=== PATIENT | female | born 1940 | race Caucasian/White ===

== ENCOUNTER 2020-04-10 17:27 | Inpatient (IN) | payer MEDICARE, MEDICAID, OTHER ==
[2020-04-10 18:23] LABS: #Basophils 0.1 thou/uL (0.0-0.2); #Eosinphils 0.1 thou/uL (0.0-0.7); #Lymphocytes 1.5 thou/uL (1.20-3.40); #Monocytes 0.8 thou/uL (0.11-0.59); #Neutrophils 4.1 thou/uL (1.40-6.50); %Basophils 0.8 % (0.0-1.0); %Lymphocytes 23.2 % (21.0-51.0); %Monocytes 12.3 % (0.0-10.0); %Neutrophils 62.8 % (42.0-75.0); Hemoglobin 13.5 g/dL (12.0-16.0); Mean Corpuscular Hemoglobin 31.8 pg (27.0-31.0); Mean Corpuscular Volume 96.3 fL (78.0-98.0); Mean Platelet Volume 8.7 fL (7.4-10.4); Platelet Count 291 thou/uL (130-400); RBC Distribution Width 12.2 % (11.5-14.5); Red Blood Cell (RBC) Count 4.26 mill/uL (4.20-5.40); White Blood Cell (WBC) Count 6.6 thou/uL (4.8-10.8)
[2020-04-10 18:46] LABS: ALT (SGPT) 33 U/L (8-55); AST (SGOT) 24 U/L (5-34); Albumin 4.1 g/dL (3.4-4.8); Alkaline Phosphatase 119 U/L (40-110); Anion Gap 13 mmol/L (10-20); BUN (Urea Nitrogen) 7 mg/dL (9.8-20.1); Bilirubin, Total 0.5 mg/dL (0.2-1.2); Calc. Creatinine Clearance 0 mL/min (70-130); Calcium 9.5 mg/dL (7.8-10.44); Carbon Dioxide 28 mmol/L (23-31); Chloride 88 mmol/L (98-107); Estimated GFR-MDRD 89; Globulin 3.5 g/dL (2.4-3.5); Glucose 103 mg/dL (83-110); Lipase 13 U/L (8-78); Magnesium 1.7 mg/dL (1.6-2.6); Protein, Total 7.6 g/dL (6.0-8.3); Sodium 125 mmol/L (136-145)
--- NOTE | 2020-04-10 18:51 | RAD ---
PORTABLE CHEST 1 VIEW: Date: 04/10/2020 Time: 1833 hours HISTORY: Hypertension with headaches, nausea, vomiting, and weakness. COMPARISON: None. FINDINGS: There is elevation of the right hemidiaphragm. The heart size is normal. The aorta is tortuous. No fo ralph areas of consolidation, pneumothoraces, or pleural effusions are seen. IMPRESSION: No acute process. POS: [facility]
[2020-04-10] MEDS ORDERED: Acetaminophen 325 MG TAB ONE (18:57)
[2020-04-10] MEDS ORDERED: Ketorolac Tromethamine 30 MG/ML VIAL ONE (18:57)
[2020-04-10] MEDS ORDERED: Labetalol HCl 100 MG/20 ML VIAL ONE (19:05)
[2020-04-10 20:30] LABS: Bacteria/HPF None Seen HPF (None Seen); Bilirubin Negative (Negative); Blood, Urine Negative (Negative); Clarity Clear (Clear); Glucose, Urine (Dipstick) Normal (Negative); Ketone, Urine 20 mg/dL (Negative); Leukocyte 75 Leu/uL (Negative); Nitrite Negative (Negative); Protein, Urine (Dipstick) Negative (Neg-Trace); RBC/HPF 0-3 HPF (0-3); Specific Gravity, Urine 1.011 (1.002-1.036); Squamous Epithelial 0-3 HPF (0-3); Urobilinogen Normal mg/dL (Less than 2); pH, Urine 6.5 (5.0-9.0)
[2020-04-10] MEDS ORDERED: cefTRIAXone\\ROCEPHIN 1 GM VIAL ONE (20:51)
[2020-04-11 00:45] VITALS: BMI 30.4
[2020-04-11] MEDS ORDERED: hydrALAZINE 20 MG/ML VIAL SLOW IVP PRN (01:43)
[2020-04-11] MEDS ORDERED: Sodium Chloride 0.9% 1,000 ML IV SCH (02:00)
--- NOTE | 2020-04-11 03:12 | HP ---
REASON FOR ADMISSION: Headaches. HISTORY OF PRESENT ILLNESS: This is an 79-year-old female patient, who presented to the ER complaining of headaches that she describes them as severe in intensity involving her whole head. History going back to two weeks before her presentation, she developed these headaches and for that reason, she visited her primary care physician, who diagnosed her with high blood pressure and she was started on amlodipine, but her blood pressure remains elevated. The headaches were continuous and today, her daughter called her neurologist, who advised her to come to the ER. In the ER, she was found to have a very high blood pressure. She was given labetalol IV for a systolic blood pressure of 192, currently the patient is on telemetry. She appeared to be very comfortable when I saw her. She denied having any headaches anymore. She was asleep. The patient was also noted to be hyponatremic. Her sodium was 125. The patient denied diarrhea and denied vomiting. She does eat a low-salt diet, but this is not different than her norm. On the other hand, she was recently diagnosed in February with some type of neurologia. She was started on carbamazepine and this medication is only medication that helped her with her left facial pain. The patient has been feeling weak lately. PAST MEDICAL HISTORY: 1. Neurologia. 2. High blood pressure. 3. 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 SOCIAL HISTORY: She quit smoking 17 years ago. Does not drink alcohol. ALLERGIES: TO SULFA AND CODEINE. FAMILY HISTORY: Negative for heart disease. REVIEW OF SYSTEMS: All systems reviewed except the above mentioned, found to be negative. PHYSICAL EXAMINATION: GENERAL: She is awake, alert, and oriented, does not appear in distress. VITAL SIGNS: Blood pressure is 143/79, heart rate of 64, temperature is 96.3, and saturating 95% on room air. HEENT: Head is nontraumatic and normocephalic. NECK: Supple. No adenopathy. No murmur. Thyroid is not palpable. Trachea is midline. No supraclavicular lymphadenopathy. HEART: S1 and S2. Regular. No murmur. No gallops. No friction rubs. No displacement of PMI. LUNGS: Clear to auscultation bilaterally. No wheezes. No rhonchi. No crackles. ABDOMEN: Bowel sounds are positive. Nontender abdomen. No hepatosplenomegaly. EXTREMITIES: No lower extremity edema. No cyanosis. NEUROLOGIC: Cranial nerves 2 through 12 within normal limits. Normal motor function. Normal sensory function. Normal reflexes. LABORATORY DATA: Blood work shows a WBC 6.6, hemoglobin 13.5, and platelets of 291. Sodium 125, potassium 4, bicarb 28, BUN 7, and creatinine 0.64. Urinalysis shows positive for leukocyte esterase and 7 to 10 wbc's. EKG shows normal sinus rhythm. ASSESSMENT AND PLAN: This is an 79-year-old female patient presenting with weakness, also hypertensive urgency found to be hyponatremic. Her hyponatremia could be due to carbamazepine. Renal system, electrolytes. The patient is hyponatremic. This could be due to carbamazepine. On the other hand, this medication is the only medication that has been helping her neurologia. The patient was not comfortable holding it. We will continue with this medication. Awaiting a urine sodium and serum osmolality to further characterize her hyponatremia. We will also consult Nephrology and we will have her on gentle fluid hydration with normal saline at 50 mL/h. For her urine infection, she will be on Rocephin. Awaiting results of urine culture. Neurologia. As mentioned above, she will be maintained on carbamazepine for now. For high blood pressure, I will start her on Toprol. We will start her on a lowest dose since her heart rate, although now in the 70s and at some point, it was in the 60s. We will supplement it with hydralazine on as-needed basis, if her blood pressure remains uncontrolled. For DVT prophylaxis, she will be on Lovenox. I did discuss with her the code status and she wishes to be an only cardiac code. She does not want to be intubated. Job ID: [id number]
[2020-04-11 04:43] LABS: Anion Gap 12 mmol/L (10-20); BUN (Urea Nitrogen) 8 mg/dL (9.8-20.1); Calc. Creatinine Clearance 91 mL/min (70-130); Calcium 8.8 mg/dL (7.8-10.44); Carbon Dioxide 25 mmol/L (23-31); Chloride 93 mmol/L (98-107); Estimated GFR-MDRD Greater than 90; Glucose 124 mg/dL (83-110); Potassium 3.1 mmol/L (3.5-5.1); Sodium 127 mmol/L (136-145)
[2020-04-11] MEDS: carBAMazepine SR 300 mg Capsule PO SCH ×2 (07:07→19:28)
[2020-04-11] MEDS: Enoxaparin Sodium 40 MG/0.4 ML SYRINGE SC SCH (07:58)
[2020-04-11] MEDS ORDERED: Calcium Carbonate 500 MG ChewTAB PO PRN (10:27)
[2020-04-11] MEDS ORDERED: Ondansetron ODT 4 MG TAB PO PRN (10:27)
[2020-04-11] MEDS ORDERED: Ondansetron PF 4 MG/2 ML Vial IVP PRN (10:27)
[2020-04-11] MEDS ORDERED: Senokot S 8.6-50 MG TAB PO PRN (10:27)
--- NOTE | 2020-04-11 10:57 | CT ---
HEAD CT WITHOUT CONTRAST: Date: 04/11/2020 COMPARISON: None available. HISTORY: Headache for 2 weeks, high blood pressure. TECHNIQUE: Axial CT imaging at 5 mm intervals from vertex through skull base without contrast. FINDINGS: The imaged paranasal sinuses and mastoid air cells demonstrate mucosal thickening of the sphenoid sin us on the left with mild wall thickening suggesting chronic sinusitis. There is an ocular prosthesis on the right. There is no displaced calvarial fracture. There is a degree of periventricular and deep white matter hypodensity suggesting small vessel diseas e. No intracranial hemorrhage, midline shift, mass effect, or ventricular enlargement. IMPRESSION: No intracranial hemorrhage. POS: [facility]
[2020-04-11] MEDS: Potassium Chloride 20 MEQ TAB PO SCH ×2 (11:24→16:29)
[2020-04-11] MEDS: Acetaminophen 325 MG TAB PO PRN (11:24)
[2020-04-11] MEDS ORDERED: Amlodipine 10 MG TAB PO SCH (13:00)
--- NOTE | 2020-04-11 13:38 | CON ---
DATE OF CONSULTATION: 04/11/2020 SERVICE: Nephrology. REASON FOR CONSULTATION: Hyponatremia. REQUESTING PHYSICIAN: Yunier Garcia MD CHIEF COMPLAINT: Headaches. HISTORY OF PRESENT ILLNESS: An 79-year-old female with known history of trigeminal neuralgia, hypertension, who was admitted due to worsening headache since about 2 weeks ago. The patient during evaluation was found to have hyponatremia with sodium of 125, hence Nephrology consult. The patient reportedly was diagnosed with trigeminal neuralgia several years ago by a neurologist and was subsequently started on carbamazepine with improvement. Headaches and head pain subsided while on the medication up until about 2 weeks ago when she started having headaches, which she reported is slightly different from her usual headaches. Has seen PCP and was noted to have elevated blood pressures. On presentation to the hospital, blood pressure was elevated with systolic of 192. She denied nausea, vomiting, frequent falls, dizziness, leg swelling. The patient also reported that in the last 2 weeks she has been drinking a lot more of water about 40 ounces every day. She also denied diarrhea or change in bowel habit or change in appetite. PAST MEDICAL HISTORY: 1. Trigeminal neuralgia. 2. Hypertension. 3. Right-sided blindness. PAST SURGICAL HISTORY: None other than eye surgery. FAMILY HISTORY: Negative for heart disease. SOCIAL HISTORY: The patient lives with family. She is a former smoker, but quit about 17 years ago. Denied alcohol intake. ALLERGIES: REPORTED ADVERSE REACTION TO SULFA AND CODEINE. HOME MEDICATIONS: 1. Amlodipine 5 mg p.o. daily. 2. Calcium carbonate 600 mg p.o. daily. 3. Carbamazepine 300 mg b.i.d. 4. Multivitamin 1 tablet p.o. daily. 5. Vitamin A with vitamin C, zinc and copper 1 tablet p.o. daily. REVIEW OF SYSTEMS: A 12-point review of system performed was negative other than pertinent positives and negatives included in the history of present illness. PHYSICAL EXAMINATION: VITAL SIGNS: Temperature 98.4, pulse 72, respiratory rate 18, SpO2 of 92% on room air, and blood pressure is 141/75. GENERAL: Comfortable elderly female, in no obvious distress. Afebrile. Anicteric. Acyanotic. HEENT: Normocephalic, atraumatic. Right eye enucleation/anopia noted. Both eyelids strapped together with a Band-Aid. Oral mucosa is moist. NECK: Supple with no JVD. CARDIOVASCULAR: Regular rhythm and rate with normal heart sounds 1 and 2. RESPIRATORY: Fair air entry bilaterally with no obvious crackle or rhonchi or use of accessory muscles. GI: Full, soft, nontender, nondistended with normal bowel sounds. EXTREMITIES: Grossly normal looking and atraumatic with no edema or erythema. TREASURY ASSISTANT: Conscious, alert, and oriented x3 with appropriate mental status. Cranial nerves 2 through 12 are grossly intact. DIAGNOSTIC DATA: CBC, April 10, 2020, showed WBC count of 6.6, hemoglobin of 13.5, platelets of 291, and MCV of 96.1. Chemistry today showed sodium 127, potassium 3.1, chloride 93, CO2 of 25, BUN 8, creatinine 0.59, glucose 124, calcium 8.8. Of note, on presentation to the ER yesterday, April 10, sodium was 125, potassium 4.0, chloride 88, CO2 of 28, BUN 7, creatinine 0.64, calcium 9.5, magnesium 1.7, total bilirubin 0.5, AST 24, ALT 33, alkaline phosphatase 119, total protein 7.6, albumin 4.1. Urinalysis performed on April 10, 2020, showed light yellow urine with clear urine with pH of 6.5, specific gravity of 1.011, negative protein, normal glucose, 20 ketone, negative blood, nitrites, or bilirubin. Leukocyte esterase was 75. Microscopy showed 0 to 3 rbc's and 7 to 10 wbc's with no bacteria seen. Urine osmolality performed today was sodium osmolality is 264. CT scan of the head without contrast showed no intracranial hemorrhage or displaced calvarial fracture. Paranasal sinuses and mastoid air cells on the left suggestive of chronic sinusitis. Chest x-ray performed on April 10, 2020, showed elevation of right hemidiaphragm with normal-sized heart. The aorta is tortuous, but there were no focal areas of consolidation, pneumothorax, or pleural effusion and no acute process was identified. ASSESSMENT: 1. Hyponatremia: Most likely due to syndrome of inappropriate secretion of antidiuretic hormone, which was exacerbated by recent increase in free water intake. Syndrome of inappropriate secretion of antidiuretic hormone most likely is due to use of Tegretol. Osmolality of both urine and plasma are suggestive. There may be some degree of volume depletion as plasma sodium went up from 125 on presentation to 127 with IV fluid therapy. 2. Hypertension, controlled, is improving. 3. Hypokalemia: This is acute. Etiology is unclear. Most likely related to diuresis and urine loss as patient came in with potassium of 4.0, which has trended down to 3.1. 4. Trigeminal neuralgia, on Tegretol. PLAN: 1. We will discontinue normal saline as the patient is not dehydrated. 2. We will also replete serum potassium with 80 mEq of potassium chloride. 3. We will restart amlodipine with a view to getting adequate BP control. 4. We will start free water restriction of 1.5. We will recheck electrolytes and renal function and further treatment to follow depending on hospital course. Many thanks for involving us in the care of this patient. We will follow along with you. Job ID: [id number]
[2020-04-11 14:14] LABS: Anion Gap 11 mmol/L (10-20); BUN (Urea Nitrogen) 7 mg/dL (9.8-20.1); Calc. Creatinine Clearance 81 mL/min (70-130); Calcium 8.5 mg/dL (7.8-10.44); Carbon Dioxide 26 mmol/L (23-31); Chloride 92 mmol/L (98-107); Estimated GFR-MDRD 86; Glucose 106 mg/dL (83-110); Potassium 3.8 mmol/L (3.5-5.1); Sodium 125 mmol/L (136-145)
[2020-04-11 14:30] LABS: SARS-CoV-2 MS2 Positive; SARS-CoV-2 N Gene Negative; SARS-CoV-2 S Gene Negative; SARS-CoV-2 by NAA Not Detected (NotDetected); SARS-CoV-2 orf1ab Negative
[2020-04-11] MEDS ORDERED: Magnesium Sulfate 4 GM in Sodium Chloride 0.9% 250 ML 250 ML IVPB SCH (20:30)
[2020-04-11] MEDS: Cyanocobalamin (Vitamin B-12) 1,000 MCG TAB PO SCH (21:31)
[2020-04-11] MEDS: cefTRIAXone\\ROCEPHIN 1 GM in Sodium Chloride 0.9% 100 ML IVPB SCH (21:31)
[2020-04-11] MEDS: Famotidine 20 MG TAB PO SCH (21:31)
[2020-04-11] MEDS: Folic Acid 1 MG TAB PO SCH (21:31)
[2020-04-11] MEDS: Multivit, Therapeutic 1 TAB PO SCH (21:31)
[2020-04-12 04:26] LABS: #Basophils 0.1 thou/uL (0.0-0.2); #Eosinphils 0.2 thou/uL (0.0-0.7); #Lymphocytes 1.2 thou/uL (1.20-3.40); #Monocytes 0.6 thou/uL (0.11-0.59); #Neutrophils 2.4 thou/uL (1.40-6.50); %Basophils 1.7 % (0.0-1.0); %Eosinophils 4.3 % (0.0-10.0); %Lymphocytes 26.8 % (21.0-51.0); %Monocytes 13.9 % (0.0-10.0); %Neutrophils 53.3 % (42.0-75.0); Hemoglobin 11.6 g/dL (12.0-16.0); Mean Corpuscular HGB CONC 33.5 g/dL (32.0-36.0); Mean Corpuscular Hemoglobin 32.4 pg (27.0-31.0); Mean Corpuscular Volume 96.8 fL (78.0-98.0); Mean Platelet Volume 8.8 fL (7.4-10.4); Platelet Count 223 thou/uL (130-400); RBC Distribution Width 12.3 % (11.5-14.5); Red Blood Cell (RBC) Count 3.57 mill/uL (4.20-5.40); White Blood Cell (WBC) Count 4.4 thou/uL (4.8-10.8)
[2020-04-12 04:49] LABS: Anion Gap 11 mmol/L (10-20); BUN (Urea Nitrogen) 5 mg/dL (9.8-20.1); Calc. Creatinine Clearance 94 mL/min (70-130); Calcium 8.5 mg/dL (7.8-10.44); Carbon Dioxide 25 mmol/L (23-31); Chloride 95 mmol/L (98-107); Estimated GFR-MDRD Greater than 90; Glucose 95 mg/dL (83-110); Magnesium 2.5 mg/dL (1.6-2.6); Phosphorus 2.7 mg/dL (2.3-4.7); Potassium 4.2 mmol/L (3.5-5.1); Sodium 127 mmol/L (136-145)
[2020-04-12] MEDS: Acetaminophen 325 MG TAB PO PRN (06:00)
[2020-04-12] MEDS: carBAMazepine SR 300 mg Capsule PO SCH ×2 (06:00→18:04)
[2020-04-12] MEDS ORDERED: Amlodipine 5 MG TAB PO SCH ×2 (09:00→11:45)
[2020-04-12] MEDS: Famotidine 20 MG TAB PO SCH ×2 (09:04→20:45)
[2020-04-12] MEDS: Enoxaparin Sodium 40 MG/0.4 ML SYRINGE SC SCH (09:05)
[2020-04-12] MEDS ORDERED: cloNIDine 0.1 MG TAB PO PRN (10:36)
[2020-04-12] MEDS ORDERED: Valproate Sodium 500 MG in Sodium Chloride 0.9% 100 ML IVPB SCH (10:45)
--- NOTE | 2020-04-12 13:12 | PRG ---
DATE OF SERVICE: 04/12/2020 SERVICE: Nephrology. SUBJECTIVE: An 79-year-old female, seen in followup for hyponatremia and hypertension, was admitted due to persistent headache. She reports feeling better. She had headache episode earlier this morning associated with hypertension, which has improved. Denied nausea, vomiting, or abdominal pain. OBJECTIVE: VITAL SIGNS: Temperature 98.5, pulse 69, respiratory rate 20, SpO2 of 93% on room air, blood pressure is 163/80. I and O in the last 24 hours showed total intake of 1860 with total output of 1000. GENERAL: Comfortable female, in no distress. Afebrile. HEENT: Normocephalic and atraumatic. Oral mucosa is moist. CARDIOVASCULAR: Regular rhythm and rate with normal heart sounds one and two. RESPIRATORY: Fair air entry bilaterally with no crackle or rhonchi or use of accessory muscles. GI: Full, soft, nontender, nondistended with normal bowel sounds. EXTREMITIES: Grossly normal looking, atraumatic with no edema or erythema. BROADCAST CHECKER: Conscious, alert, oriented x3 with appropriate mental status. Cranial nerves 2 through 12 are grossly intact. DIAGNOSTIC DATA: CBC showed WBC count of 4.4, hemoglobin of 11.6, platelet of 223. Chemistry showed sodium 127, potassium 4.2, chloride 95, CO2 of 25, BUN 5, creatinine 0.57, glucose 95, calcium 8.5, phosphorus 2.7, magnesium 2.5. ASSESSMENT: 1. Hyponatremia: Most likely due to syndrome of inappropriate antidiuretic hormone secretion. The patient is on Tegretol for a long time. She also admitted to increase free water intake. Sodium level is up to 127 from fluid restriction, though in the last 24 hours, the patient took more than recommended. 2. Hypertension: Control is still suboptimal. 3. Headache: Thought to be due to trigeminal neuralgia and uncontrolled hypertension. 4. Hypokalemia: Repleted. PLAN: 1. We will increase amlodipine to 10 mg p.o. daily. 2. We will adhere to fluid restriction. We will monitor intake and output. 3. We will recheck electrolytes and renal function tomorrow. Further treatment to follow depending on hospital course. Job ID: [id number]
[2020-04-12] MEDS: Acetaminophen 325 MG TAB PO SCH ×2 (15:06→20:44)
--- NOTE | 2020-04-12 20:08 | PDOC.HOSPP ---
- Subjective Encounter Date: 04/12/20 Encounter Time: 15:30 Subjective: Patient seen and examined for 4 generalized weakness with headache. Headache slightly improved. Received IV valproic acid earlier valproic acid earlier. Continues to feel generally continues to feel generally weak and fatigued. Nausea is slowly improving. No new focal deficit reported. - Objective Vital Signs & Weight: Vital Signs (12 hours) Temp Pulse Resp BP BP Pulse Ox 04/12/20 15:07 97.5 F L 71 18 137/63 93 L 04/12/20 11:21 97.5 F L 68 18 144/69 H 95 04/12/20 09:00 98.5 F 69 20 163/80 H 93 L Weight Admit Weight 166 lb 6.4 oz Weight 167 lb I&O: 04/11/20 04/12/20 04/13/20 06:59 06:59 06:59 Intake Total 381 1860 580 Output Total 750 1000 Balance -369 860 580 Result Diagrams: 04/12/20 04:06 04/13/20 03:48 EKG Reviewed by me: Yes (Tele SR) Hospitalist ROS - Review of Systems Constitutional: reports: weakness Cardiovascular: denies: chest pain, palpitations, orthopnea, paroxysmal noc. dyspnea, edema, light headedness, other Gastrointestinal: reports: nausea. denies: vomiting, abdominal pain, diarrhea, constipation, melena, hematochezia, other Neurological: denies: weakness, numbness, incoordination, change in speech, confusion, seizures, other - Medication Medications: Active Medications Generic Name Dose Route Start Last Admin Trade Name Freq PRN Reason Stop Dose Admin Acetaminophen 650 mg 04/11/20 10:27 04/12/20 06:00 Tylenol PO 650 mg Q4H PRN Administration Headache/Fever/Mild Pain (1-3) Acetaminophen 650 mg 04/12/20 15:00 04/12/20 15:06 Tylenol PO Not Given TID HA Carbamazepine 300 mg 04/11/20 07:00 04/12/20 18:04 Carbatrol PO 300 mg 0700,1900 HA Administration Cyanocobalamin 1,000 mcg 04/11/20 21:00 04/11/20 21:31 Vitamin B-12 PO 1,000 mcg HS HA Administration Enoxaparin Sodium 40 mg 04/11/20 09:00 04/12/20 09:05 Lovenox SC 40 mg 0900 HA Administration Famotidine 20 mg 04/11/20 21:00 04/12/20 09:04 Pepcid PO 20 mg BID HA Administration Folic Acid 1 mg 04/11/20 21:00 04/11/20 21:31 Folvite PO 1 mg HS HA Administration Ceftriaxone Sodium 1 gm/ 100 mls @ 200 mls/hr 04/11/20 21:00 04/11/20 21:31 Sodium Chloride IVPB 100 mls 2100 HA Administration Metoprolol Succinate 25 mg 04/11/20 09:00 04/12/20 09:05 Toprol Xl PO 25 mg DAILY HA Administration Multivitamins 1 tab 04/11/20 21:00 04/11/20 21:31 Theragran PO 1 tab HS HA Administration Ondansetron HCl 4 mg 04/11/20 10:27 04/12/20 15:07 Zofran Odt PO 4 mg Q6H PRN Administration Nausea/Vomiting Sodium Chloride 10 ml 04/11/20 21:00 04/12/20 09:05 Flush - Normal Saline IVF 10 ml Q12HR HA Administration - Exam General Appearance: ill appearing Neck: supple, no JVD Heart: RRR, no gallops, no rubs, normal peripheral pulses Respiratory: no wheezes, no rales, no ronchi, normal chest expansion Gastrointestinal: soft, non-tender, non-distended, no guarding, no rigidity Extremities: no cyanosis, no clubbing, no edema Extremities - other findings: no calf tenderness Neurological: no new deficit Musculoskeletal: generalized weakness Psychiatric: normal affect, A&O x 3 Hosp A/P - Plan DVT proph w/lovenox, DVT proph w/SCDs Generalized weakness multifactorial Hypotonic hyponatremia/SIADH. Sodium today was 127 from 120 from 125 yesterday. Serum osmolality 264 with a urine osmolality of 250 UTIon IV ceftriaxone Hypertensive urgency Trigeminal neuralgia on carbamazepine Obesity with a BMI 30.5 Plan: Continue fluid restriction for SIADH. Amlodipine dose increased to 10 mg daily due to uncontrolled blood pressure. Patient received 1 dose of IV valproic acid due to intractable headache. Continue lisinopril 20 mg daily/ Toprol XL 25 mg daily which were started this admission. Continue sodium chloride 3 times a day per nephrology. Recheck labs in a.m.. Await urine cultures.
[2020-04-12] MEDS: cefTRIAXone\\ROCEPHIN 1 GM in Sodium Chloride 0.9% 100 ML IVPB SCH (20:44)
[2020-04-12] MEDS: Folic Acid 1 MG TAB PO SCH (20:45)
[2020-04-12] MEDS: Cyanocobalamin (Vitamin B-12) 1,000 MCG TAB PO SCH (20:45)
[2020-04-12] MEDS: Multivit, Therapeutic 1 TAB PO SCH (20:45)
[2020-04-13] MEDS: Acetaminophen 325 MG TAB PO PRN (03:01)
[2020-04-13 04:11] LABS: Anion Gap 12 mmol/L (10-20); BUN (Urea Nitrogen) 7 mg/dL (9.8-20.1); Calc. Creatinine Clearance 85 mL/min (70-130); Calcium 8.2 mg/dL (7.8-10.44); Carbon Dioxide 22 mmol/L (23-31); Chloride 94 mmol/L (98-107); Estimated GFR-MDRD Greater than 90; Glucose 93 mg/dL (83-110); Magnesium 1.8 mg/dL (1.6-2.6); Potassium 4.1 mmol/L (3.5-5.1); Sodium 124 mmol/L (136-145)
[2020-04-13] MEDS: carBAMazepine SR 300 mg Capsule PO SCH ×2 (06:30→18:30)
[2020-04-13] MEDS: Enoxaparin Sodium 40 MG/0.4 ML SYRINGE SC SCH (10:32)
[2020-04-13] MEDS: Sodium Chloride 1 GM TAB PO SCH ×3 (10:32→20:59)
[2020-04-13] MEDS: Acetaminophen 325 MG TAB PO SCH ×3 (10:32→20:56)
[2020-04-13] MEDS: Famotidine 20 MG TAB PO SCH ×2 (10:33→20:58)
[2020-04-13] MEDS: Lisinopril 20 MG TAB PO SCH (10:33)
[2020-04-13] MEDS: Amlodipine 5 MG TAB PO SCH (10:34)
--- NOTE | 2020-04-13 11:56 | PRG ---
DATE OF SERVICE: 04/13/2020 SERVICE: Nephrology. SUBJECTIVE: An 79-year-old female seen in followup for hyponatremia and hypertension. No new complaints. OBJECTIVE: VITAL SIGNS: Temperature 98.1, pulse 66, respiratory rate 17, SpO2 96% on room air, and blood pressure is 148/69. Intake and output in the last 24 hours showed total intake of 1170 with output of 400, this is inconclusive. GENERAL: Elderly female, in no distress. Afebrile. HEENT: Normocephalic, atraumatic. Oral mucosa is moist. CARDIOVASCULAR: Regular rhythm and rate with normal heart sounds 1 and 2. RESPIRATORY: Fair air entry bilaterally with no crackle or rhonchi or use of accessory muscles. GI: Full, soft, nontender, nondistended with normal bowel sounds. EXTREMITIES: Grossly normal looking, atraumatic with no edema or erythema. PASTEURIZER: Conscious and alert and oriented x3 with appropriate mental status. DIAGNOSTIC DATA: Chemistry today showed sodium of 124, potassium 4.1, chloride 94, CO2 of 22, BUN 7, creatinine 0.63, glucose 93, calcium 8.2, phosphorus 3.0, and magnesium 1.8. ASSESSMENT: 1. Hyponatremia: Due to syndrome of inappropriate antidiuretic hormone secretion, most likely related to use of Tegretol. Sodium went down from 127 to 124. The patient was supposed to be on fluid restriction, but this was not observed in the last 24 hours. 2. Hypertension: Control is still suboptimal. 3. Headaches: Improved. PLAN: 1. We will start sodium tablet. 2. We will also observe the ordered fluid restriction. I had a discussion with patient about the need to be compliant with fluid restriction. 3. We will also start losartan to get adequate blood pressure control in addition to amlodipine. 4. We will recheck BMP this afternoon and if numbers are trending up, the patient can be discharged with a view to follow up in 1 week with repeat labs. Further treatment to follow depending on hospital course. Job ID: [id number]
--- NOTE | 2020-04-13 19:45 | PDOC.HOSPP ---
- Subjective Encounter Date: 04/13/20 Encounter Time: 17:00 Subjective: Patient seen and examined for hypertensive urgency with intractable headache and hyponatremia. Headache is significantly improved after better blood pressure control. Patient denies any new focal neurologic deficit. Continues to feel generally weak and fatigued. - Objective Vital Signs & Weight: Vital Signs (12 hours) Temp Pulse Resp BP BP Pulse Ox 04/13/20 15:42 98.1 F 62 16 138/64 96 04/13/20 12:30 62 138/69 04/13/20 11:40 63 16 196/84 H 97 04/13/20 10:27 98.1 F 66 17 148/69 H 96 Weight Admit Weight 166 lb 6.4 oz Weight 166 lb 8 oz I&O: 04/12/20 04/13/20 04/14/20 06:59 06:59 06:59 Intake Total 1860 1170 480 Output Total 1000 400 Balance 860 770 480 Result Diagrams: 04/12/20 04:06 04/13/20 03:48 EKG Reviewed by me: Yes (Tele SR) Hospitalist ROS - Review of Systems Respiratory: denies: cough, dry, shortness of breath, hemoptysis, SOB with excertion, pleuritic pain, sputum, wheezing, other Cardiovascular: denies: chest pain, palpitations, orthopnea, paroxysmal noc. dyspnea, edema, light headedness, other - Medication Medications: Active Medications Generic Name Dose Route Start Last Admin Trade Name Freq PRN Reason Stop Dose Admin Acetaminophen 650 mg 04/11/20 10:27 04/13/20 03:01 Tylenol PO 650 mg Q4H PRN Administration Headache/Fever/Mild Pain (1-3) Acetaminophen 650 mg 04/12/20 15:00 04/13/20 14:36 Tylenol PO 650 mg TID HA Administration Amlodipine Besylate 10 mg 04/13/20 09:00 04/13/20 10:34 Norvasc PO 10 mg DAILY HA Administration Carbamazepine 300 mg 04/11/20 07:00 04/13/20 18:30 Carbatrol PO 300 mg 0700,1900 HA Administration Cyanocobalamin 1,000 mcg 04/11/20 21:00 04/12/20 20:45 Vitamin B-12 PO 1,000 mcg HS HA Administration Enoxaparin Sodium 40 mg 04/11/20 09:00 04/13/20 10:32 Lovenox SC 40 mg 0900 HA Administration Famotidine 20 mg 04/11/20 21:00 04/13/20 10:33 Pepcid PO 20 mg BID HA Administration Folic Acid 1 mg 04/11/20 21:00 04/12/20 20:45 Folvite PO 1 mg HS HA Administration Ceftriaxone Sodium 1 gm/ 100 mls @ 200 mls/hr 04/11/20 21:00 04/12/20 20:44 Sodium Chloride IVPB 100 mls 2100 HA Administration Lisinopril 20 mg 04/13/20 09:00 04/13/20 10:33 Zestril PO 20 mg DAILY HA Administration Metoprolol Succinate 25 mg 04/11/20 09:00 04/13/20 10:33 Toprol Xl PO 25 mg DAILY HA Administration Multivitamins 1 tab 04/11/20 21:00 04/12/20 20:45 Theragran PO 1 tab HS HA Administration Ondansetron HCl 4 mg 04/11/20 10:27 04/12/20 15:07 Zofran Odt PO 4 mg Q6H PRN Administration Nausea/Vomiting Sodium Chloride 10 ml 04/11/20 21:00 04/13/20 10:40 Flush - Normal Saline IVF 10 ml Q12HR HA Administration Sodium Chloride 1 gm 04/13/20 09:00 04/13/20 14:37 Sodium Chloride PO 1 gm TID HA Administration - Exam General Appearance: NAD Neck: supple, no JVD Heart: RRR, no gallops Respiratory: no wheezes, no ronchi Gastrointestinal: non-tender, normal bowel sounds Extremities: no cyanosis Neurological: no new deficit Hosp A/P - Plan DVT proph w/SCDs Generalized weakness multifactorial Hypotonic hyponatremia/SIADH. Sodium today was 127 from 120 from 125 yesterday. Serum osmolality 264 with a urine osmolality of 250 UTIon IV ceftriaxone Hypertensive urgency Trigeminal neuralgia on carbamazepine Obesity with a BMI 30.5 Plan: 04/13 Sodium 124 today. Continue fluid restriction. Nephrology input appreciated. Headache is improving. Continue lisinopril, Toprol-XL along with amlodipine. Continue sodium chloride tablets. Await final urine cultures. Continue other medications as above. Not safe for discharge due to significant hypo-natremia. 04/12 Continue fluid restriction for SIADH. Amlodipine dose increased to 10 mg daily due to uncontrolled blood pressure. Patient received 1 dose of IV valproic acid due to intractable headache. Continue lisinopril 20 mg daily/Toprol XL 25 mg daily which were started this admission. Continue sodium chloride 3 times a day per nephrology. Recheck labs in a.m.. Await urine cultures.
[2020-04-13] MEDS: cefTRIAXone\\ROCEPHIN 1 GM in Sodium Chloride 0.9% 100 ML IVPB SCH (20:57)
[2020-04-13] MEDS: Cyanocobalamin (Vitamin B-12) 1,000 MCG TAB PO SCH (20:58)
[2020-04-13] MEDS: Folic Acid 1 MG TAB PO SCH (20:58)
[2020-04-13] MEDS: Multivit, Therapeutic 1 TAB PO SCH (20:58)
[2020-04-13] MEDS: Magnesium Chloride 64 MG TAB PO SCH (20:59)
[2020-04-14 04:39] LABS: Anion Gap 11 mmol/L (10-20); BUN (Urea Nitrogen) 9 mg/dL (9.8-20.1); Calc. Creatinine Clearance 86 mL/min (70-130); Calcium 8.3 mg/dL (7.8-10.44); Carbon Dioxide 26 mmol/L (23-31); Chloride 94 mmol/L (98-107); Estimated GFR-MDRD Greater than 90; Glucose 92 mg/dL (83-110); Magnesium 1.6 mg/dL (1.6-2.6); Phosphorus 3.3 mg/dL (2.3-4.7); Potassium 3.8 mmol/L (3.5-5.1); Sodium 127 mmol/L (136-145)
[2020-04-14] MEDS: carBAMazepine SR 300 mg Capsule PO SCH (06:30)
[2020-04-14] MEDS ORDERED: Magnesium Sulfate 4 GM in Sodium Chloride 0.9% 250 ML 250 ML IVPB SCH (08:15)
[2020-04-14] MEDS: Amlodipine 5 MG TAB PO SCH (08:21)
[2020-04-14] MEDS: Acetaminophen 325 MG TAB PO SCH ×2 (08:21→14:32)
[2020-04-14] MEDS: Enoxaparin Sodium 40 MG/0.4 ML SYRINGE SC SCH (08:21)
[2020-04-14] MEDS: Lisinopril 20 MG TAB PO SCH (08:22)
[2020-04-14] MEDS: Famotidine 20 MG TAB PO SCH (08:22)
[2020-04-14] MEDS ORDERED: Lisinopril 20 MG TAB PO SCH ×3 (09:22→13:15)
[2020-04-14] MEDS: Magnesium Chloride 64 MG TAB PO SCH (09:49)
[2020-04-14] MEDS: Sodium Chloride 1 GM TAB PO SCH ×2 (09:50→14:32)
--- NOTE | 2020-04-14 13:34 | PRG ---
DATE OF SERVICE: SERVICE: Nephrology. SUBJECTIVE: An 79-year-old female seen in followup for hyponatremia and hypertension. Reports feeling better. Headache has subsided. Denied nausea or vomiting. OBJECTIVE: VITAL SIGNS: Temperature 98.2, pulse 66, respiratory rate 14, SpO2 of 97% on room air, blood pressure is 153/82. I and O in the last 24 hours showed total intake of 720 with output of 600. This seems to be inconclusive. GENERAL: Elderly female, in no obvious distress. Afebrile. Anicteric. Acyanotic. HEENT: Normocephalic, atraumatic. Right eye blindness noted. CARDIOVASCULAR: Regular rhythm and rate with normal heart sounds 1 and 2. RESPIRATORY: Fair air entry bilaterally with no obvious crackle or rhonchi or use of accessory muscles. GI: Full, soft, nontender, nondistended with normal bowel sounds. EXTREMITIES: Grossly normal looking atraumatic with no edema or erythema. RUBBER TILE FLOOR LAYER: Conscious, alert, oriented x3 with appropriate mental status. DIAGNOSTIC DATA: Chemistry showed sodium 127, potassium 3.8, chloride 94, CO2 of 26, BUN 9, creatinine 0.62, glucose 92, calcium 8.3, phosphorus 3.3, magnesium 1.6. ASSESSMENT: 1. 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 Sodium is up to 127 from 124 yesterday. 2. 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 3. Hypertension: Control is better but still suboptimal. 4. Headache: Most likely due to uncontrolled hypertension. Resolved. 5. Trigeminal neuralgia. On carbamazepine. PLAN: 1. Continue fluid restriction. 2. Also continue salt tablets. 3. Increase lisinopril to 40 mg daily in addition to amlodipine and metoprolol to get adequate BP control. 4. Disposition: The patient can be discharged from Nephrology point of view. Close followup with repeat labs on April 19 is recommended with followup on April 20. Care plan was discussed with the primary attending as well. Job ID: [id number]
--- NOTE | 2020-04-14 14:12 | DIS ---
DATE OF ADMISSION: 04/13/2020 DATE OF DISCHARGE: 04/14/2020 DISCHARGE DISPOSITION: Home. FOLLOWUP: 1. With primary care physician, Mahamed Davies, nurse practitioner in [address] Guzman next week. 3. [facility] has been arranged. 4. Repeat basic metabolic profile after 1 week is recommended. Primary care physician advised to follow. The patient was evaluated on the day of discharge. Denies any new complaints. No chest pain, shortness of breath, or palpitations reported. DIAGNOSTIC TESTS: Sodium at discharge is 127, lowest sodium was 124. Urine osmolality 250. Serum osmolality was 264. Urine culture showed mixed skin leana. BRIEF HOSPITAL COURSE: The patient is an 79-year-old female with hypertension, presented to the hospital with intractable headache. Her workup in the emergency room was consistent with hypertension with blood pressure of 192/85 and 185/104. She received IV labetalol 20 mg in the emergency room. She was also diagnosed with UTI and was started on empiric ceftriaxone. Please refer to the history and physical for further details. The patient was admitted to the telemetry unit with the above diagnosis. The patient was only on amlodipine 5 mg daily prior to admission. She was started on beta-brannon along with ROGER inhibitor per Nephrology recommendation. Amlodipine dose was also increased. Her blood pressure has gradually stabilized in 140 to 150 range. She will be discharged home on lisinopril 40 mg daily, amlodipine 10 mg daily, and Toprol-XL 25 mg daily. The patient was evaluated by Nephrology due to hyponatremia with the lowest sodium of 124. 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 She was placed on fluid restriction along with sodium chloride tablet. Her sodium has improved to 127 today. The patient will follow up with Nephrology as outpatient next week for further followup. The patient was also found to have other electrolyte abnormalities including hypokalemia and hypomagnesemia, which were replaced. The patient had intractable headache, probably due to uncontrolled blood pressure. After better blood pressure control, headache has resolved. She also received 1 dose of IV valproic acid for possible migraine headache. The patient appears stable for discharge. I discussed the plan of care with the patient's daughter over the phone. FINAL DIAGNOSES: 1. Generalized weakness, multifactorial. 2. Hypertensive urgency. 3. Intractable headache probably due to uncontrolled blood pressure. 4. Hypotonic hyponatremia secondary to syndrome of inappropriate antidiuretic hormone secretion, improving. 5. Urinary tract infection, completed IV ceftriaxone. 6. Trigeminal neuralgia, on carbamazepine. 7. Obesity with a BMI of 30.5. 8. Hypokalemia, replaced. 9. Hypomagnesemia. The patient will receive IV magnesium supplementation prior to discharge. The patient understands the above plan of care. Job ID: [id number]
[2020-04-14 15:34] VITALS: BP 191/85; TEMP 97.6
[2020-04-15] MEDS ORDERED: Lisinopril 20 MG TAB PO SCH (09:00)
== END 2020-04-14 18:25 | disposition home or self-care (01) | DRG 644 ==
LOC: ERS 17:27 → 2NO 22:00 → INTOOBSV 22:00 → ERS 22:48 → OBSVTOIN 04-13 14:21
PROVIDERS: ADMIT Internal Medicine; ATTEND Internal Medicine
DX: E22.2 Syndrome of inappropriate secretion of antidiuretic hormone (principal); N39.0 Urinary tract infection, site not specified; I16.0 Hypertensive urgency; I10 Essential (primary) hypertension; E87.6 Hypokalemia; G50.0 Trigeminal neuralgia; T42.1X5A Adverse effect of iminostilbenes, initial encounter; G43.909 Migraine, unspecified, not intractable, without status migrainosus; E83.42 Hypomagnesemia; E66.9 Obesity, unspecified; Z87.891 Personal history of nicotine dependence; Z88.2 Allergy status to sulfonamides; Z88.5 Allergy status to narcotic agent; Z68.30 Body mass index [BMI] 30.0-30.9, adult
CPT/HCPCS: 36415; 70450; 71045; 80048; 80053; 81003; 81015; 83690; 83735; 83930; 83935; 84100; 84300; 84484; 85025; 87086; 87635; 93005; 96365; 96366; 96372; 96375; G0378; J0696; J1650; J1885; J3475; J3490; J7050; Q0162; U0003

== ENCOUNTER 2020-06-15 19:47 | Emergency (ER) | payer MEDICARE, MEDICAID ==
[2020-06-15] MEDS ORDERED: Acetaminophen 500 MG TAB ONE (20:41)
[2020-06-15] MEDS ORDERED: cloNIDine 0.1 MG TAB ONE (20:41)
--- NOTE | 2020-06-15 20:42 | RAD ---
Exam: Chest one view HISTORY:Nausea. Headache. Dizziness. Comparison: 04/10/2020 FINDINGS: Cardiac silhouette: Normal Aorta: Atherosclerotic Pulmonary vessels: Normal Costophrenic angles: Clear LUNGS: No masses or consolidation. Chronic lung parenchymal changes. Pneumothorax: None Osseous abnormalities: None IMPRESSION: 1. Atherosclerosis. 2. Chronic lung parenchymal changes.
[2020-06-15 20:48] LABS: #Eosinphils 0.1 thou/uL (0.0-0.7); #Lymphocytes 1.4 thou/uL (1.20-3.40); #Monocytes 0.8 thou/uL (0.11-0.59); #Neutrophils 4.7 thou/uL (1.40-6.50); %Basophils 0.5 % (0.0-1.0); %Eosinophils 1.9 % (0.0-10.0); %Monocytes 11.5 % (0.0-10.0); %Neutrophils 66.1 % (42.0-75.0); Mean Corpuscular HGB CONC 33.6 g/dL (32.0-36.0); Mean Corpuscular Volume 98.4 fL (78.0-98.0); Platelet Count 251 thou/uL (130-400); RBC Distribution Width 13.2 % (11.5-14.5); Red Blood Cell (RBC) Count 4.23 mill/uL (4.20-5.40); White Blood Cell (WBC) Count 7.1 thou/uL (4.8-10.8)
[2020-06-15 21:10] LABS: ALT (SGPT) 14 U/L (8-55); AST (SGOT) 18 U/L (5-34); Albumin 4.1 g/dL (3.4-4.8); Alkaline Phosphatase 118 U/L (40-110); Anion Gap 14 mmol/L (10-20); BUN (Urea Nitrogen) 19 mg/dL (9.8-20.1); Bilirubin, Total 0.3 mg/dL (0.2-1.2); CK (CPK) 37 U/L (29-168); Calc. Creatinine Clearance 0 mL/min (70-130); Calcium 9.5 mg/dL (7.8-10.44); Carbon Dioxide 29 mmol/L (23-31); Chloride 103 mmol/L (98-107); Estimated GFR-MDRD 76; Globulin 3.4 g/dL (2.4-3.5); Glucose 115 mg/dL (83-110); Lipase 17 U/L (8-78); Potassium 3.8 mmol/L (3.5-5.1); Protein, Total 7.5 g/dL (6.0-8.3); Sodium 142 mmol/L (136-145)
== END 2020-06-16 | disposition home or self-care (01) ==
LOC: ERS 19:47
DX: I10 Essential (primary) hypertension (principal); Z87.891 Personal history of nicotine dependence; Z79.899 Other long term (current) drug therapy
CPT/HCPCS: 71045; 80053; 82550; 83690; 84484; 85025; 93005

== ENCOUNTER 2023-11-09 11:24 | Inpatient (IN) | payer MEDICARE ==
[2023-11-09 13:11] LABS: #Basophils 0.1 thou/uL (0.0-0.2); #Eosinphils 0.2 thou/uL (0.0-0.7); #Monocytes 0.8 thou/uL (0.11-0.59); #Neutrophils 6.9 thou/uL (1.40-6.50); %Basophils 0.6 % (0.0-1.0); %Eosinophils 2.7 % (0.0-10.0); %Lymphocytes 9.8 % (21.0-51.0); %Monocytes 8.5 % (0.0-10.0); %Neutrophils 78.1 % (42.0-75.0); Hematocrit 42.4 % (36.0-47.0); Hemoglobin 14.6 g/dL (12.0-16.0); Mean Corpuscular HGB CONC 34.4 g/dL (32.0-36.0); Mean Corpuscular Volume 98.8 fl (78.0-98.0); Mean Platelet Volume 9.3 fL (7.4-10.4); Platelet Count 318 10x3/uL (130-400); RBC Distribution Width 13.3 % (11.5-14.5); Red Blood Cell (RBC) Count 4.29 mill/uL (4.20-5.40); White Blood Cell (WBC) Count 8.8 10x3/uL (4.8-10.8)
[2023-11-09 13:33] LABS: ALT (SGPT) 10 U/L (8-55); AST (SGOT) 17 U/L (5-34); Albumin 4.3 g/dL (3.4-4.8); Alkaline Phosphatase 128 U/L (40-110); Anion Gap 17 mmol/L (10-20); BUN (Urea Nitrogen) 19 mg/dL (9.8-20.1); Bilirubin, Total 0.7 mg/dL (0.2-1.2); Calc. Creatinine Clearance 0 mL/min (70-130); Carbon Dioxide 26 mmol/L (23-31); Chloride 89 mmol/L (98-107); Estimated GFR 86; Globulin 3.8 g/dL (2.4-3.5); Glucose 110 mg/dL (83-110); Potassium 4.6 mmol/L (3.5-5.1); Protein, Total 8.1 g/dL (5.8-8.1); Sodium 127 mmol/L (136-145)
[2023-11-09] MEDS ORDERED: Ondansetron PF 4 MG/2 ML Vial ONE (14:28)
[2023-11-09] MEDS ORDERED: Ketorolac Tromethamine 30 MG (1 mL) VIAL ONE (15:36)
[2023-11-09] MEDS ORDERED: Iopamidol-370 76% 500 ML MDV (1 ML CHARGE) ONE (16:06)
[2023-11-09 16:10] LABS: Bacteria/HPF None Seen HPF (None Seen); Bilirubin Negative (Negative); Blood, Urine Negative (Negative); CAUTI Indications for Culture < 2yrs of age; Clarity Clear (Clear); Glucose, Urine (Dipstick) Normal (Negative); Ketone, Urine Negative (Negative); Leukocyte Negative Leu/uL (Negative); Nitrite Negative (Negative); Protein, Urine (Dipstick) Negative (Neg-Trace); RBC/HPF None Seen HPF (0-3); Specific Gravity, Urine 1.035 (1.002-1.036); Squamous Epithelial None Seen HPF (0-3); Urobilinogen Normal mg/dL (Less than 2); WBC/HPF 0-3 HPF (0-3)
[2023-11-09 16:12] LABS: Urine Culture Reflex Yes Yes
[2023-11-09] MEDS ORDERED: Acetaminophen 650 MG Suppository PR PRN (17:37)
[2023-11-09] MEDS: cloNIDine 0.1 MG TAB PO SCH (21:43)
[2023-11-09] MEDS: Furosemide 40 MG (4 mL) VIAL SLOW IVP SCH (21:46)
[2023-11-09] MEDS: Lidocaine 4% Patch TD SCH (21:46)
[2023-11-09] MEDS: Gabapentin 300 MG CAP PO SCH (21:57)
[2023-11-09 23:16] LABS: #Eosinphils 0.2 thou/uL (0.0-0.7); #Monocytes 0.8 thou/uL (0.11-0.59); #Neutrophils 4.3 thou/uL (1.40-6.50); %Basophils 0.7 % (0.0-1.0); %Eosinophils 2.9 % (0.0-10.0); %Lymphocytes 10.3 % (21.0-51.0); %Monocytes 13.3 % (0.0-10.0); %Neutrophils 72.5 % (42.0-75.0); Hemoglobin 11.7 g/dL (12.0-16.0); Mean Corpuscular HGB CONC 34.4 g/dL (32.0-36.0); Mean Corpuscular Hemoglobin 33.8 pg (27.0-31.0); Mean Corpuscular Volume 98.3 fl (78.0-98.0); Mean Platelet Volume 9.4 fL (7.4-10.4); Platelet Count 256 10x3/uL (130-400); RBC Distribution Width 13.1 % (11.5-14.5); Red Blood Cell (RBC) Count 3.46 mill/uL (4.20-5.40); White Blood Cell (WBC) Count 5.9 10x3/uL (4.8-10.8)
[2023-11-10 04:30] LABS: #Eosinphils 0.2 thou/uL (0.0-0.7); #Monocytes 0.7 thou/uL (0.11-0.59); #Neutrophils 3.2 thou/uL (1.40-6.50); %Basophils 0.8 % (0.0-1.0); %Eosinophils 3.7 % (0.0-10.0); %Lymphocytes 15.4 % (21.0-51.0); %Monocytes 14.1 % (0.0-10.0); %Neutrophils 65.6 % (42.0-75.0); Hematocrit 33.2 % (36.0-47.0); Hemoglobin 11.3 g/dL (12.0-16.0); Mean Corpuscular Hemoglobin 33.5 pg (27.0-31.0); Mean Corpuscular Volume 98.5 fl (78.0-98.0); Mean Platelet Volume 9.4 fL (7.4-10.4); Platelet Count 253 10x3/uL (130-400); Red Blood Cell (RBC) Count 3.37 mill/uL (4.20-5.40); White Blood Cell (WBC) Count 4.9 10x3/uL (4.8-10.8)
[2023-11-10] MEDS: Transdermal Patch Removal TOP SCH (04:30)
[2023-11-10 05:04] LABS: Anion Gap 11 mmol/L (10-20); BUN (Urea Nitrogen) 14 mg/dL (9.8-20.1); Calc. Creatinine Clearance 75 mL/min (70-130); Calcium 8.3 mg/dL (7.8-10.44); Carbon Dioxide 28 mmol/L (23-31); Chloride 93 mmol/L (98-107); Estimated GFR 91; Glucose 97 mg/dL (83-110); Potassium 4.6 mmol/L (3.5-5.1); Sodium 127 mmol/L (136-145)
[2023-11-10] MEDS: HYDROcodone/Acetaminophen 5/325 mg Tablet PO PRN (06:20)
[2023-11-10] MEDS: Amlodipine 10 MG TAB PO SCH (09:04)
[2023-11-10] MEDS: Sodium Chloride 1 GM TAB PO SCH (09:04)
[2023-11-10] MEDS: FLUoxetine HCl 10 MG CAP PO SCH (09:05)
[2023-11-10] MEDS: Loratadine 10 MG TAB PO SCH (09:06)
[2023-11-10] MEDS: Furosemide 40 MG (4 mL) VIAL SLOW IVP SCH (09:07)
[2023-11-10] MEDS: Acetaminophen 325 MG TAB PO PRN (09:53)
[2023-11-10] MEDS: Ondansetron PF 4 MG/2 ML Vial IVP PRN (14:58)
[2023-11-10] MEDS ORDERED: Ketorolac Tromethamine 30 MG (1 mL) VIAL IVP PRN (18:33)
[2023-11-10] MEDS: carBAMazepine 200 MG TAB PO SCH (20:43)
[2023-11-11 05:42] LABS: #Eosinphils 0.2 thou/uL (0.0-0.7); #Monocytes 0.8 thou/uL (0.11-0.59); #Neutrophils 4.3 thou/uL (1.40-6.50); %Basophils 0.6 % (0.0-1.0); %Eosinophils 2.6 % (0.0-10.0); %Lymphocytes 13.1 % (21.0-51.0); %Monocytes 13.6 % (0.0-10.0); %Neutrophils 69.6 % (42.0-75.0); Hematocrit 37.9 % (36.0-47.0); Hemoglobin 12.9 g/dL (12.0-16.0); Mean Corpuscular Hemoglobin 33.2 pg (27.0-31.0); Mean Corpuscular Volume 97.4 fl (78.0-98.0); Mean Platelet Volume 9.6 fL (7.4-10.4); Platelet Count 296 10x3/uL (130-400); RBC Distribution Width 12.7 % (11.5-14.5); Red Blood Cell (RBC) Count 3.89 mill/uL (4.20-5.40); White Blood Cell (WBC) Count 6.2 10x3/uL (4.8-10.8)
[2023-11-11] MEDS: Ondansetron ODT 4 MG TAB PO PRN (05:45)
[2023-11-11 05:57] LABS: Anion Gap 16 mmol/L (10-20); BUN (Urea Nitrogen) 14 mg/dL (9.8-20.1); Calc. Creatinine Clearance 65 mL/min (70-130); Calcium 9.3 mg/dL (7.8-10.44); Carbon Dioxide 29 mmol/L (23-31); Chloride 89 mmol/L (98-107); Estimated GFR 88; Glucose 99 mg/dL (83-110); Potassium 4.5 mmol/L (3.5-5.1); Sodium 129 mmol/L (136-145)
[2023-11-11] MEDS ORDERED: Furosemide 40 MG (4 mL) VIAL SLOW IVP SCH (06:00)
[2023-11-11] MEDS ORDERED: Promethazine HCl 6.25 MG in Sodium Chloride 0.9% 50 ML IVPB PRN (09:00)
[2023-11-11] MEDS ORDERED: FLU VACC QS2023(65UP)/MF59C/PF 60 MCG/0.5 ML SYRINGE IM ONE (09:00)
[2023-11-11] MEDS ORDERED: Mag-Al 1200 mg/1200 mg/30 ML UDCUP PO PRN (10:18)
[2023-11-11] MEDS: Pantoprazole 40 MG VIAL IVP SCH (20:37)
[2023-11-12 06:09] LABS: #Basophils 0.1 thou/uL (0.0-0.2); #Eosinphils 0.2 thou/uL (0.0-0.7); #Monocytes 0.8 thou/uL (0.11-0.59); #Neutrophils 3.9 thou/uL (1.40-6.50); %Basophils 1.1 % (0.0-1.0); %Lymphocytes 12.4 % (21.0-51.0); %Monocytes 13.8 % (0.0-10.0); %Neutrophils 68.8 % (42.0-75.0); Hematocrit 36.4 % (36.0-47.0); Hemoglobin 12.1 g/dL (12.0-16.0); Mean Corpuscular HGB CONC 33.2 g/dL (32.0-36.0); Mean Corpuscular Hemoglobin 33.8 pg (27.0-31.0); Mean Corpuscular Volume 101.7 fl (78.0-98.0); Mean Platelet Volume 9.4 fL (7.4-10.4); Platelet Count 294 10x3/uL (130-400); RBC Distribution Width 12.6 % (11.5-14.5); Red Blood Cell (RBC) Count 3.58 mill/uL (4.20-5.40); White Blood Cell (WBC) Count 5.7 10x3/uL (4.8-10.8)
[2023-11-12 06:38] LABS: Anion Gap 12 mmol/L (10-20); BUN (Urea Nitrogen) 13 mg/dL (9.8-20.1); Calc. Creatinine Clearance 68 mL/min (70-130); Calcium 9.4 mg/dL (7.8-10.44); Carbon Dioxide 27 mmol/L (23-31); Chloride 90 mmol/L (98-107); Estimated GFR 89; Glucose 104 mg/dL (83-110); Sodium 125 mmol/L (136-145)
[2023-11-12] MEDS ORDERED: Docusate 100 MG CAP PO PRN (10:47)
[2023-11-12] MEDS ORDERED: Polyethylene Glycol 3350 17 GM Packet PO SCH (10:47)
[2023-11-12] MEDS: Polyethylene Glycol 3350 17 GM Packet PO SCH (12:35)
[2023-11-13 05:31] LABS: Anion Gap 11 mmol/L (10-20); BUN (Urea Nitrogen) 12 mg/dL (9.8-20.1); Calc. Creatinine Clearance 71 mL/min (70-130); Calcium 9.2 mg/dL (7.8-10.44); Carbon Dioxide 30 mmol/L (23-31); Chloride 92 mmol/L (98-107); Estimated GFR 89; Glucose 99 mg/dL (83-110); Potassium 4.1 mmol/L (3.5-5.1); Sodium 129 mmol/L (136-145)
[2023-11-13] MEDS: Polyethylene Glycol 3350 17 GM Packet PO SCH (08:35)
[2023-11-14 05:45] LABS: Anion Gap 13 mmol/L (10-20); BUN (Urea Nitrogen) 12 mg/dL (9.8-20.1); Calc. Creatinine Clearance 76 mL/min (70-130); Calcium 8.6 mg/dL (7.8-10.44); Carbon Dioxide 28 mmol/L (23-31); Chloride 93 mmol/L (98-107); Estimated GFR 91; Glucose 98 mg/dL (83-110); Sodium 130 mmol/L (136-145)
[2023-11-15] MEDS: Fluticasone Propionate Nasal Spray 16 gm Bottle NASAL SCH ×2 (10:50→20:01)
[2023-11-15 12:18] LABS: Sodium 125 mmol/L (136-145)
[2023-11-15] MEDS: Senokot S 8.6-50 MG TAB PO SCH (20:04)
[2023-11-16 09:16] LABS: Anion Gap 13 mmol/L (10-20); BUN (Urea Nitrogen) 11 mg/dL (9.8-20.1); Calc. Creatinine Clearance 72 mL/min (70-130); Calcium 8.9 mg/dL (7.8-10.44); Carbon Dioxide 25 mmol/L (23-31); Chloride 91 mmol/L (98-107); Estimated GFR 90; Glucose 92 mg/dL (83-110); Potassium 4.3 mmol/L (3.5-5.1); Sodium 125 mmol/L (136-145)
[2023-11-16] MEDS: Sodium Chloride 1 GM TAB PO SCH (15:42)
[2023-11-17 05:51] LABS: Anion Gap 11 mmol/L (10-20); BUN (Urea Nitrogen) 11 mg/dL (9.8-20.1); Calc. Creatinine Clearance 76 mL/min (70-130); Calcium 8.7 mg/dL (7.8-10.44); Carbon Dioxide 27 mmol/L (23-31); Chloride 92 mmol/L (98-107); Estimated GFR 91; Glucose 97 mg/dL (83-110); Potassium 3.9 mmol/L (3.5-5.1); Sodium 126 mmol/L (136-145)
[2023-11-17 06:23] VITALS: BMI 25.7
[2023-11-18 05:43] LABS: Anion Gap 12 mmol/L (10-20); BUN (Urea Nitrogen) 11 mg/dL (9.8-20.1); Calc. Creatinine Clearance 78 mL/min (70-130); Calcium 8.9 mg/dL (7.8-10.44); Carbon Dioxide 28 mmol/L (23-31); Chloride 92 mmol/L (98-107); Estimated GFR 89; Glucose 102 mg/dL (83-110); Potassium 3.8 mmol/L (3.5-5.1); Sodium 128 mmol/L (136-145)
[2023-11-18 07:37] VITALS: BP 133/75
[2023-11-18 12:47] VITALS: TEMP 97.1
== END 2023-11-18 15:00 | DRG 644 ==
LOC: ERS 11:24 → MSONC 17:26 → OBSVTOIN 11-10 13:31
PROVIDERS: ADMIT Student in an Organized Health Care Education/Training Program; ATTEND Family Medicine
DX: E22.2 Syndrome of inappropriate secretion of antidiuretic hormone (principal); M48.54XA Collapsed vertebra, not elsewhere classified, thoracic region, initial encounter for fracture; H35.30 Unspecified macular degeneration; I11.0 Hypertensive heart disease with heart failure; G89.29 Other chronic pain; G50.0 Trigeminal neuralgia; I50.9 Heart failure, unspecified; K21.9 Gastro-esophageal reflux disease without esophagitis; J30.2 Other seasonal allergic rhinitis; T42.1X5A Adverse effect of iminostilbenes, initial encounter; Z79.899 Other long term (current) drug therapy
CPT/HCPCS: 36415; 36416; 51701; 71045; 71250; 74177; 80048; 80053; 81001; 83605; 83880; 83930; 83935; 84295; 84300; 84443; 84484; 85025; 87086; 93005; 93306; 96374; 96375; C9113; G0378; J1885; J1940; J2405; Q0162; Q9967